=== PATIENT | male | born 1950 ===

== ENCOUNTER 2024-02-08 14:12 | Emergency (ER) | payer OTHER ==
[~2024-02-08] VITALS: Ht 185.4 cm; Wt 72.6 kg
[2024-02-08 14:17] VITALS: BP 138/81
[2024-02-08] MEDS ORDERED: Permethrin60 GM TOP (14:48)
== END 2024-02-08 14:41 | disposition home or self-care (01) ==
LOC: ER 14:12
DX: B86 Scabies (principal)
CPT/HCPCS: 99282